=== PATIENT | female | born 1995 | race Caucasian/White ===

== ENCOUNTER 2023-03-18 10:15 | Emergency (ER) | payer SELFPAY ==
[~2023-03-18] VITALS: Ht 154.9 cm; Wt 37.6 kg
[2023-03-18 10:22] VITALS: BP 125/97
[2023-03-18 11:22] LABS: BASOPHILS ABSOLUTE AUTO 0.04 K/mm3 (0.00-0.23); BASOPHILS PERCENT AUTO 0 % (0-2); EOSINOPHILS ABSOLUTE AUTO 0.02 K/mm3 (0.00-0.68); EOSINOPHILS PERCENT AUTO 0 % (0-6); Hematocrit 43.6 % (33.0-51.0); Hemoglobin 15.6 g/dL (11.5-16.0); IMMATURE GRAN ABSOLUTE AUTO 0.04 K/mm3 (0.00-0.10); IMMATURE GRAN PERCENT AUTO 0 % (0-1); LYMPHOCYTES ABSOLUTE AUTO 1.22 K/mm3 (0.84-5.20); LYMPHOCYTES PERCENT AUTO 13 % (21-46); MONOCYTES ABSOLUTE AUTO 0.55 K/mm3 (0.16-1.47); MONOCYTES PERCENT AUTO 6 % (4-13); Mean Corpuscular HGB Conc 35.8 g/dL (31.5-36.5); Mean Corpuscular Volume 89 fL (80-100); Mean Platelet Volume 10.7 fL (9.1-12.4); NEUTROPHILS ABSOLUTE AUTO 7.44 K/mm3 (1.96-9.15); NEUTROPHILS PERCENT AUTO 80 % (41-73); Platelet Count 280 K/mm3 (150-400); RDW Coefficient Variation 12.2 % (11.7-14.2); RDW Standard Deviation 39.8 fL (35.1-46.3); Red Blood Cell Count 4.88 M/mm3 (3.80-5.20); White Blood Cell Count 9.31 K/mm3 (4.00-11.30)
[2023-03-18 11:39] LABS: Calcium, Blood 9.1 mg/dL (8.5-10.1); Creatinine, Blood 0.9 mg/dL (0.40-1.00); Potassium, Blood 3.9 mmol/L (3.5-5.5); Thyroid Stimulating Hormone 2.36 uIU/mL (0.360-4.800)
[2023-03-18] MEDS ORDERED: Ativan1 MG PO (12:31)
[2023-03-18] MEDS ORDERED: CITALOPRAM HBR20 M9 PO (12:31)
== END 2023-03-18 13:00 | disposition home or self-care (01) ==
LOC: ER 10:15
PROVIDERS: Emergency Medicine
DX: F41.1 Generalized anxiety disorder (principal); G47.00 Insomnia, unspecified
CPT/HCPCS: 80048; 84443; 84703; 85025; 99284; A9270